=== PATIENT | male | born 1965 | race Hispanic/Latino ===

== ENCOUNTER → 2018-09-06 | Outpatient (CLI) | payer OTHER ==
--- NOTE | 2018-09-06 10:30 | NUR ---
MBSS COMPLETED. NON-TRANSIENT PENETRATION WITH THIN LIQUIDS VIA TSP. RECOMMEND PEG TUBE FOR NUTRITION/HYDRATION. RE-EVAL IN 4-6 WEEKS. PATIENT INFORMATION: Pt IS A 52 YEAR OLD MALE WHO WAS REFERRED FOR AN MBSS SECONDARY TO MALIGNANT NEOPLASM OF LARYNX. Pt AAOX3 AND COOPERATIVE DURING THE SESSION. Pt APHONIC AT THIS TIME WITH A WHISPER LIKE VOICE. Pt REPORTS ODYNOPHAGIA AND PAIN WHEN ATTEMPTING TO VOICE. Pt IS CURRENTLY PARTICIPATING IN RADIATION AND CHEMO THERAPY AND HAS BEEN DOING SO FOR 7 WEEKS. Pt WITH PEG TUBE PLACEMENT IN JULY (2 WEEKS AGO) SECONDARY TO COMPLAINS OF ODYNOPHAGIA. Pt REPORTS EXCESSIVE SALIVA PRODUCTION WITH RADIATION THERAPY. 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 MASS REMOVAL IN 2017 AND IN MAY OF 2018. MBSS INTERPRETATION: Pt PRESENTS WITH SEVERE PHARYNGEAL DYSPHAGIA CAUSED BY DECREASED TONGUE BASE RETRACTION, INCREASED MUCUS PRODUCTION POOLED IN TONGUE BASE AND , VALLECULAE AND NEAR AIRWAY, DELAYED PHARYNGEAL RESPONSE TRIGGER, EVIDENCED BY POOLING IN THE VALLECULAE, COMPLAINS OF ODYNOPHAGIA, RESULTING IN SHALLOW PENETRATION WITH THIN LIQUIDS WITH TRACE ASPIRATION SUSPECTED (UNABLE TO CAPTURE DURING TRIAL DUE TO Pt MOVING). Pt WITH REGURGITATION OF PUREED TEXTURE SECONDARY TO INCREASED POOLED SALIVA AND NOT ABLE TO PASS TONGUE BASE. PLEASE NOTE LIMITED TRIALS WERE COMPLETED AT THIS TIME SECONDARY TO COMPLAINS OF SEVERE ODYNOPHAGIA WITH Pt SPITTING OUT LARGE AMOUNTS OF SALIVA AND MUCUS MAKING IT IMPOSSIBLE TO CONTINUE. Pt WITH SEVERE DISCOMFORT WITH SWALLOWING AT THIS TIME. TRIALS: 1. TSP PUREED: REGURGITATED AND DID NOT PASS BASE OF TONGUE 2. IMAGE OF AIRWAY: MUCUS POOLING OBVIOUS IN AIRWAY 3. TSP THIN LIQUIDS: SHALLOW PENETRATION WITH SUSPECTED TRACE ASPIRATION. RECOMMENDATIONS: 1. PEG TUBE FEEDINGS FOR ALL NUTRITION/HYDRATION. 2. RE-EVALUATION IN 4-6 WEEKS. 3. SKILLED SPEECH THERAPY IS RECOMMENDED TO BEGIN DYSPHAGIA THERAPY TO INITIATE SWALLOW FUNCTION. INTENSIVE SPEECH THERAPY IS RECOMMENDED AFTER RADIATION AND CHEMO THERAPY ARE COMPLETED. G-CODES SWALLOWING: [id number] Addendum: 09/06/18 at 1226 by SILVINA LUCIO, [facility] Amended: Links added.
== END | disposition home or self-care (01) ==
LOC: RAH 09:26
PROVIDERS: ATTEND Family Medicine
DX: C32.9 Malignant neoplasm of larynx, unspecified (principal)
CPT/HCPCS: 74230; 92611

== ENCOUNTER 2023-03-16 10:25 | Day surgery (SDC) | payer OTHER ==
[~2023-03-16] VITALS: Ht 177.8 cm; Wt 72.6 kg
[2023-03-16] VITALS (10 sets, daily range): BP systolic 112–140; BP diastolic 62–96; PULSE 67–105; RESP 16–20
[~2023-03-16 10:25] MED LIST: 0.9%NACL 1000ML 1,000 ML IV ONE; PANT40TA54 PO; SERT200C PO
[2023-03-16] MEDS ORDERED: PROPOFOL 10 MG/ML 20ML VIAL IV ONE ×2 (13:58→14:05)
[2023-03-16] MEDS ORDERED: LIDOCAINE PF 100MG/5ML (2%) SYRINGE 5ML ONE (13:58)
[2023-03-16] MEDS ORDERED: MIDAZOLAM HCL 1 MG/ML 2ML VIAL ONE (13:58)
== END 2023-03-16 15:30 | disposition home or self-care (01) ==
LOC: ENDO 10:25 → DAH 10:25 → ENDO 15:30
PROVIDERS: ATTEND Internal Medicine Gastroenterology
DX: R13.10 Dysphagia, unspecified (principal); K22.2 Esophageal obstruction; K29.80 Duodenitis without bleeding; K29.50 Unspecified chronic gastritis without bleeding; K21.00 Gastro-esophageal reflux disease with esophagitis, without bleeding; E78.5 Hyperlipidemia, unspecified; F41.9 Anxiety disorder, unspecified; Z79.01 Long term (current) use of anticoagulants; Z79.899 Other long term (current) drug therapy; Z86.010 Personal history of colon polyps; Z86.16 Personal history of COVID-19; Z87.891 Personal history of nicotine dependence; Z72.89 Other problems related to lifestyle; Z98.890 Other specified postprocedural states
CPT/HCPCS: 82948; 88305; 88312; 43239; 43248; J7030 ×2; J2001; J2250; J2704 ×2; A4620; A4215 ×2; A4223; A7002; A4222; A4221; A4663; A4216; A4606; J3490

== ENCOUNTER 2025-04-08 10:13 | Day surgery (SDC) | payer OTHER ==
[2025-04-08] VITALS (10 sets, daily range): BP systolic 113–135; BP diastolic 77–85; PULSE 60–98; RESP 16–18; TEMP 97.5–98.6
[~2025-04-08] VITALS: Ht 177.8 cm; Wt 72.6 kg
[~2025-04-08 10:13] MED LIST changes: -0.9%NACL 1000ML 1,000 ML IV ONE; +FOLI0.8T41 PO; +MAGN400C PO; +VITAMIN D PO
[2025-04-08] MEDS ORDERED: 0.9%NACL 1000ML 1,000 ML IV ONE (10:34)
[2025-04-08] MEDS: 0.9%NACL 1000ML 1,000 ML IV ONE (10:36)
[2025-04-08] MEDS ORDERED: LIDOCAINE PF 100MG/5ML (2%) SYRINGE 5ML ONE (12:24)
== END 2025-04-08 14:35 | disposition home or self-care (01) ==
LOC: ENDO 10:13 → DAH 10:13 → ENDO 14:35
PROVIDERS: ATTEND Internal Medicine Gastroenterology
DX: R13.10 Dysphagia, unspecified (principal); K29.50 Unspecified chronic gastritis without bleeding; K22.2 Esophageal obstruction; R63.4 Abnormal weight loss; K31.89 Other diseases of stomach and duodenum; K21.9 Gastro-esophageal reflux disease without esophagitis; K29.00 Acute gastritis without bleeding; D49.0 Neoplasm of unspecified behavior of digestive system; E78.5 Hyperlipidemia, unspecified; N18.30 Chronic kidney disease, stage 3 unspecified; F41.9 Anxiety disorder, unspecified; G47.30 Sleep apnea, unspecified; Z86.0100 Personal history of colon polyps, unspecified; Z20.822 Contact with and (suspected) exposure to COVID-19; Z85.21 Personal history of malignant neoplasm of larynx; Z79.899 Other long term (current) drug therapy
CPT/HCPCS: 43239; 43248; 82948; 88305; 88312; J7030; J2003; J2704 ×2; A4620; A4215 ×2; A4223; A4222; A4221; A4663; A4606; J3490